=== PATIENT | female | born 1965 | race Caucasian/White ===

== ENCOUNTER 2017-02-14 06:21 | Day surgery (SDC) | payer OTHER ==
[2017-02-12 12:16] VITALS: BMI 32.2
--- NOTE | 2017-02-13 09:23 | HP ---
[facility] - Chief Complaint Chief Complaint: This patient c/o heavy uterine bleeding lasting sometimes up to 20 days. History of Present Illness: This patient has had heavy uterine bleeding in December lasting 20 days and the bleeding for 14 days in January,. History Source: Patient Limitations to Obtaining History: No Limitations - Past Medical History Allergies/Adverse Reactions: Allergies Allergy/AdvReac Type Severity Reaction Status Date / Time No Known Allergies Allergy Verified 02/12/17 12:16 [employer]: No: Alzheimer's, CVA, Dementia, Migraine, Multiple Sclerosis, Peripheral Neuropathy, Parkinson's, Seizure, Syncope, TIA, Vertigo, Other Cardiovascular: Yes: AFIB, Aneurysm, Aortic Insufficiency, Aortic Stenosis, CAD , CHF, Deep Vein Thrombosis, HTN (Patient will have medical clearance by Dr. Maria for Lupus , hypertension and auto immune conditions. See clearance by Dr. Maria.), Hyperlipdemia, VT, Mitral Insufficiency, Mitral Stenosis, Murmur, Pulmonary Hypertension, Other Pulmonary: No: Asthma, Bronchitis, Cancer, COPD, O2 Dependent, Pneumonia, Previously Intubated, Pulmonary Embolus, Pulmonary Fibrosis, Sleep Apnea, Other Gastrointestinal: No: Ascites, Cancer, Constipation, Crohn's Disease, Diverticulitis, Diverticulosis, Esophageal Varices, Gastritis, GERD, GI Bleed, Hemorrhoids, Hiatal Hernia, Inflamatory Bowel Disease, Irritable Bowel Disease, Pancreatitis, Peptic Ulcer Disease, Ulcerative Colitis, Other Hepatobiliary: No: Cirrhosis, Cholelithiasis, Cholecystitis, Choledocholithiasis , Hepatitis A, Hepatitis B, Hepatitis C, Other Renal/: No: Renal Failure, Renal Inusuff, BPH, Cancer, Hematuria, Hemodialysis , Neurogenic Bladder, Renal Calculi, UTI, Other Reproductive: No: Ectopic , Endometriosis, Fibroids, PID, Polycystic Ovary Syndrome, Postmenopausal, Other ...LMP: 02/06/17 ...: No ...: 4 ...Para: 4 Heme/Onc: No: Anemia, B12 Deficiency, Bleeding Disorder, Cancer, Current Chemotherapy, Current Radiation Therapy, Hemochromatosis, Hypercoaguable State, Myeloproliferative Synd, Sickle Cell Disease, Sickle Cell Trait, Thrombocytopenia, Other Infectious Disease: No: AIDS, C-Diff, Herpes Zoster, HIV, MRSA, STD's, Tuberculosis, VREF, Other Musculoskeletal: No: Bursitis, Chronic low back pain, Hemiparesis, Hemiplegia, Osteoarthritis, Paraplegia, Other Rheumatology: No: Fibromyalgia, Gout, Lupus, Rheumatoid Arthritis, Sarcoidosis, Vasculitis, Other ENT: No: Allergic Rhinitis, Sinusitis, Other Endocrine: No: Edgard's Disease, [place]'s Disease, Diabetes Insipidus, Diabetes Mellitus, Hyperparathyroidism, Hyperthyroidism, Hypothyroidism, Osteopenia, SIADH, Other Dermatology: No: Basal Cell, Cellulitis, Eczema, Melanoma, Psoriasis, Squamous Cell, Other (,HX of gastric sleeve,Gallbladder removed, T/A, SLE, SIDNEY 1:80 DNA 10 +Anti-cardiolipin antibodies, Hypertension, TIA 2010) - Current Medications Current Medications: Home Medications Medication Instructions Recorded Aspirin Chewable [[facility] 81 mg PO DAILY 10/20/11 Aspirin] Esomeprazole Mag Trihydrate 40 mg PO PRN PRN 12/13/13 [Nexium] Amlodipine Besylate [Norvasc -] 5 mg PO DAILY 10/31/15 Hydroxychloroquine Sulfate 200 mg PO BID 10/31/15 [Plaquenil] Rosuvastatin Calcium [Crestor] 10 mg PO DAILY 10/31/15 Warfarin Sodium [Coumadin] 5 mg PO DAILY 10/31/15 Ferrous Sulfate [Feosol] 325 mg PO TID 02/12/17 Satellite Physical Exam - Physical Examination General Appearance: Well Nourished, Well Developed, Alert & Oriented x3 ENT: Clear, No Discharge, No masses Lung: Clear to auscultation Heart: Regular rate & rhythm, Normal S1, Normal S2 Breasts: Soft, Non-Tender, No masses bilaterally Abdomen: Soft, No tenderness, No CVA Extremities: No edema, No tenderness/swelling Pelvic Exam: Within normal limits External Genitalia, Within normal limits Vagina, Within normal limits Cervix, Within normal limits Uterus, Within normal limits [facility]: Intact, Alert, Oriented Satellite Impression/Plan - Impression/Plan Impression: Abnormal uterine bleeding and menorrhagia Operative Procedure: Hysteroscopy with D/C Date to be Performed: 02/14/17
[2017-02-14 06:59] LABS: INR 1.12 (0.82-1.09); PROTHROMBIN TIME (PATIENT) 12.3 SEC (9.98-11.88)
[2017-02-14 07:02] LABS: ACTIVATED PTT 40.5 SECONDS (26.9-34.4)
[2017-02-14] MEDS ORDERED: PROPOFOL 20 ML ONE (08:40)
[2017-02-14] MEDS ORDERED: LIDOCAINE HCL/PF 2% SDV 5ML VIAL ONE (08:40)
[2017-02-14] MEDS ORDERED: MIDAZOLAM HCL 2 MG/2 ML SINGLE DOSE VIAL ONE (08:40)
[2017-02-14] MEDS ORDERED: DEXAMETHASONE SOD PHOSPHATE 4 MG/1 ML VIAL ONE (08:55)
[2017-02-14] MEDS ORDERED: oxyCODONE HCL 5 MG TABLET PO PRN (09:23)
[2017-02-14] MEDS ORDERED: ACETAMINOPHEN 500 MG TABLET (FP) PO PRN (09:23)
[2017-02-14] MEDS ORDERED: ONDANSETRON 4 MG/2 ML VIAL IVPUSH PRN (09:23)
[2017-02-14] MEDS ORDERED: LACTATED RINGERS SOLUTION 1,000 ML IV SCH (09:30)
--- NOTE | 2017-02-14 10:16 | OP ---
DATE OF OPERATION: 02/14/2017 SURGEON: Carlito Jones MD ESTIMATED BLOOD LOSS: Approximately 5 mL. The patient was brought to the operating room. Placed in the supine position. Given anesthesia by Dr. Rivera. The patient received a MAC type of anesthesia. The estimated blood loss was approximately 5 mL. The patient was placed in supine position. The patient was then placed in the lithotomy position after she was given anesthesia. She was prepped and draped in the usual manner for a dilation and curettage hysteroscopy. She was examined. The uterus was normal to be normal size, adnexa negative. The anterior lip of the cervix was grasped with a tenaculum, after the vagina was prepped and draped in the usual manner. The uterus was sounded to 8 cm. the cervix was dilated with Charlie dilators. Hysteroscopy was performed. The endometrium appeared normal. There were no signs of polyps or fibroids. There was loose tissue coming off the endometrium and the endometrium appeared normal. No lesions were noted. A dilation and curettage was then carried out using a medium-size curette. Tissue was obtained and sent to Pathology for analysis. An endocervical curettage was also carried out and the tissue again was sent to Pathology. The patient tolerated the procedure well. She was transferred to the recovery room after the procedure was completed in good condition with good hemostasis. CARLITO JONES M.D. KIMBELREY/[id number]
[2017-02-14 10:45] VITALS: PULSE 69
[2017-02-14 11:37] VITALS: TEMP 97.8
[2017-02-14 11:59] VITALS: BP 107/70
--- NOTE | 2017-02-15 15:09 | PATH ---
Surgical Pathology Report Patient Name: TYLOR MARION [facility]. Rec. #: [id number] /Age/Gender: 1965 (Age: 51) / F Account: [id number] Location: [facility] SURGICAL Taken: 02/14/2017 Received: 02/14/2017 Reported: 02/15/2017 Physicians: Anthony Jones M.D. Specimen(s) Received A: ENDOMETRIAL CURETTINGS B: ENDOCERVICAL CURETTINGS Clinical History Irregular menstruation Final Diagnosis A. ENDOMETRIUM, CURETTAGE: SIMPLE ENDOMETRIAL HYPERPLASIA WITHOUT CYTOLOGICAL ATYPIA; FOCAL STROMAL BREAKDOWN CHANGES. FRAGMENTS OF BENIGN SMOOTH MUSCLE. B. ENDOCERVIX, CURETTAGE: FRAGMENTS OF BENIGN ENDOCERVICAL TISSUE WITH SQUAMOUS METAPLASIA. Electronically Signed Marshall Alonzo M.D. Gross Description A. Received in formalin labeled "endometrial curettings" is a 2.1 x 2.1 x 0.3 cm aggregate of mayes soft tissue fragments. The formalin is filtered and the specimen is entirely submitted in one cassette. B. Received in formalin labeled "endocervical curettings" is a 0.4 x 0.3 x 0.1 cm aggregate of mayes soft tissue fragments. The formalin is filtered and the specimen is entirely submitted in one cassette. 02/14/201702/14/2017
== END 2017-02-14 11:50 | disposition home or self-care (01) ==
LOC: JASU-SURG 06:21
PROVIDERS: ATTEND Obstetrics & Gynecology
PROC: 0UDB8ZX Extraction of Endometrium, Via Natural or Artificial Opening Endoscopic, Diagnostic (ICD-10-PCS; principal; 2017-02-14 08:30)
DX: N93.8 Other specified abnormal uterine and vaginal bleeding (principal)
CPT/HCPCS: 36415; 84703; 85610; 85730; 86850; 86900; 86901; 88305-TC; 94760

== ENCOUNTER 2022-01-29 12:44 | Emergency (ER) | payer OTHER ==
[2022-01-29 12:54] VITALS: TEMP 98; BMI 40.4
[2022-01-29] MEDS ORDERED: BEBTELOVIMAB (EUA) 175 MG/2 ML VIAL IVPUSH ONE (12:54)
[2022-01-29] MEDS ORDERED: ACETAMINOPHEN 1000 MG/100 ML BAG IVPB ONE (12:55)
[2022-01-29] MEDS ORDERED: SODIUM CHLORIDE 0.9% 500 ML INFUS.BAG IV ONE (12:55)
[2022-01-29] MEDS ORDERED: ACETAMINOPHEN INJECTION 100 ML IVPB ONE (13:21)
[2022-01-29 14:45] VITALS: BP 142/78; PULSE 90; RESP 18
== END 2022-01-29 14:47 | disposition home or self-care (01) ==
LOC: JCOVINFU 12:44
PROC: 3E03329 Introduction of Other Anti-infective into Peripheral Vein, Percutaneous Approach (ICD-10-PCS; principal; 2022-01-29)
PROC: 3E033NZ Introduction of Analgesics, Hypnotics, Sedatives into Peripheral Vein, Percutaneous Approach (ICD-10-PCS; 2022-01-29)
DX: U07.1 COVID-19 (principal)
CPT/HCPCS: 96374; 96375; 99284-25; M0222; Q0222